=== PATIENT | female | born 1980 | race Caucasian/White ===

== ENCOUNTER 2018-09-14 09:32 | Emergency (ER) | payer OTHER ==
[2018-09-14 10:06] VITALS: BP 118/75; PULSE 80; TEMP 98; BMI 21.4
--- NOTE | 2018-09-14 10:50 | PDOC ---
*Physical Exam - Vital Signs Last Vital Signs Temp Pulse Resp BP Pulse Ox 98.0 F 80 18 118/75 97 09/14/18 10:04 09/14/18 10:04 09/14/18 10:04 09/14/18 10:04 09/14/18 10:04 ED Treatment Course - LABORATORY CBC & Chemistry Diagram: 09/14/18 11:42 09/14/18 11:42 Medical Decision Making - Medical Decision Making 09/14/18 10:50 Pt seen by Midlevel Provider under my direct supervision I agree with plan as outlined by Midlevel Provider *DC/Admit/Observation/Transfer Diagnosis at time of Disposition: Threatened - Discharge Dispostion Disposition: HOME Condition at time of disposition: Good - Referrals Referrals: Ravinder Farrell MD [Staff Physician] - - Patient Instructions Printed Discharge Instructions: DI for Vaginal Bleeding During Additional Instructions: Please follow-up with Dr. Farrell next Friday as scheduled. If you develop any worsening of bowel pain, nausea, fever or heavy vaginal bleeding please return to the ED immediately. Otherwise continue with your prenatals eat well-balanced meals and rest. - Post Discharge Activity Forms/Work/School Notes: Back to Work
[2018-09-14] MEDS ORDERED: ACETAMINOPHEN 500 MG TABLET (FP) PO ONE (10:59)
--- NOTE | 2018-09-14 11:40 | PDOC ---
History of Present Illness - General Chief Complaint: Vaginal Bleeding Stated Complaint: ABD PAIN / 5 WEEKS PRG Time Seen by Provider: 09/14/18 10:43 History Source: Patient Exam Limitations: No Limitations - History of Present Illness Travel History: No Initial Comments: 09/14/18 11:59 38-year-old female presents to ED with complaints of vaginal spotting since this morning accompanied with mid suprapubic cramping since last night. Patient states is approximately 6 weeks based on her last menstrual period. Patient denies fever, chills, nausea, urinary or bowel complaints. Timing/Duration: reports: constant Quality: reports: mild, cramping Abdominal Pain Onset Location: reports: suprapubic Pain Radiation: reports: no radiation Activities at Onset: reports: none Aggravating Factors: improves with: None Alleviating Factors: improves with: None Past History - Travel Traveled outside of the country in the last 30 days: No Close contact w/someone who was outside of country & ill: No - Past Medical History Allergies/Adverse Reactions: Allergies Allergy/AdvReac Type Severity Reaction Status Date / Time No Known Drug Allergies Allergy Verified 09/14/18 10:07 Home Medications: Ambulatory Orders No Home Medications 0 dose .ROUTE UTDICT 11/04/13 Doxycycline Hyclate 100 mg PO BID #20 tablet 11/05/13 Methylergonovine Maleate [Methergine] 0.2 mg PO TID #9 tablet 11/05/13 Anemia: No Asthma: No Cancer: No Cardiac Disorders: No CVA: No COPD: No CHF: No Dementia: No Diabetes: No GI Disorders: No HTN: No Hypercholesterolemia: No Seizures: No - Surgical History Orthopedic Surgery: Yes (RIGHT WRIST SX) - Suicide/Smoking/Psychosocial Hx Smoking History: Never smoked Have you smoked in the past 12 months: No Information on smoking cessation initiated: No Hx Alcohol Use: No Drug/Substance Use Hx: No Substance Use Type: None Hx Substance Use Treatment: No Patient Lives Alone: No Lives with/in: spouse/SO Review of Systems - Review of Systems Able to Perform ROS?: No Is the patient limited French proficient: No Constitutional: No: Symptoms Reported HEENTM: No: Symptoms Reported Respiratory: No: Symptoms reported Cardiac (ROS): No: Symptoms Reported ABD/GI: Yes: Abdominal cramping : No: Symptoms Reported Musculoskeletal: No: Symptoms Reported Integumentary: No: Symptoms Reported Neurological: No: Symptoms reported *Physical Exam - Vital Signs Last Vital Signs Temp Pulse Resp BP Pulse Ox 98.0 F 80 18 118/75 97 09/14/18 10:04 09/14/18 10:04 09/14/18 10:04 09/14/18 10:04 09/14/18 10:04 - Physical Exam General Appearance: Yes: Nourished, Appropriately Dressed. No: Apparent Distress HEENT: negative: Pale Conjunctivae Neck: positive: Normal Thyroid Respiratory/Chest: positive: Lungs Clear, Normal Breath Sounds. negative: Respiratory Distress, Accessory Muscle Use Cardiovascular: positive: Regular Rhythm, Regular Rate. negative: Murmur Female Pelvic Exam: positive: cervical os closed, CMT, vaginal bleeding (scant light brown). negative: adnexal tenderness Gastrointestinal/Abdominal: positive: Normal Bowel Sounds, Soft, Tenderness (id suprapubic) Musculoskeletal: negative: CVA Tenderness Extremity: positive: Normal Capillary Refill Integumentary: positive: Normal Color, Warm, Moist Neurologic: positive: Motor Strength 5/5 (ambulatory) ED Treatment Course - LABORATORY CBC & Chemistry Diagram: 09/14/18 11:42 09/14/18 11:42 - RADIOLOGY Radiology Studies Ordered: Category Date Time Status TRANSVAGINAL US PREG [US] Stat Ultrasound 09/14/18 10:58 Ordered Medical Decision Making - Medical Decision Making 09/14/18 12:06 Chief complaint: Vaginal spotting and suprapubic pain since yesterday evening patient currently 6 weeks based on LMP Exam patient w/ suprapubic tenderness along with skin light brown discharge. plan: labs, urine Tylenol and ultrasound 09/14/18 12:59 Laboratory Tests 09/14/18 09/14/18 09/14/18 11:42 11:42 11:42 Sodium 133 L Potassium 4.1 Chloride 104 Carbon Dioxide 24 Anion Gap 5 L BUN 10 Random Glucose 85 Calcium 9.0 Beta HCG, Quant 92538.6 Urine Nitrite Negative Ur Leukocyte Esterase Negative Urine WBC (Auto) 1 Urine RBC (Auto) 1 Blood Type A POSITIVE pt recommended to have saltines later today *DC/Admit/Observation/Transfer Diagnosis at time of Disposition: Threatened - Discharge Dispostion Disposition: HOME Condition at time of disposition: Good - Referrals Referrals: Ravinder Farrell MD [Staff Physician] - - Patient Instructions Printed Discharge Instructions: DI for Vaginal Bleeding During Additional Instructions: Please follow-up with Dr. Farrell next Friday as scheduled. If you develop any worsening of bowel pain, nausea, fever or heavy vaginal bleeding please return to the ED immediately. Otherwise continue with your prenatals eat well-balanced meals and rest. - Post Discharge Activity Forms/Work/School Notes: Back to Work
[2018-09-14] MEDS ORDERED: ACETAMINOPHEN 325 MG TABLET (FP) PO ONE (11:45)
[2018-09-14 12:01] LABS: BASO % 0.6 % (0-2.0); EOS % 2.5 % (0-4.5); HEMATOCRIT 38.8 % (32.4-45.2); HEMOGLOBIN 13.2 GM/dL (10.7-15.3); MCH 30.8 pg (25.7-33.7); MCHC 34.1 g/dl (32.0-36.0); MEAN CELL VOLUME 90.3 fl (80-96); MEAN PLT VOLUME 10.6 fl (7.5-11.1); MONO % 6.5 % (3.8-10.2); NEUT % 72.4 % (42.8-82.8); PLATELET COUNT 161 K/MM3 (134-434); RBC 4.29 M/mm3 (3.60-5.2); RDW 12.8 % (11.6-15.6)
[2018-09-14 12:08] LABS: EPI CELLS 2.8 /HPF (0-5); PH,URINE 5.5 (5.0-8.0); URINE APPEARANCE CLEAR; URINE BACTERIA 196.7 /hpf (NEGATIVE); URINE BILIRUBIN NEGATIVE (NEGATIVE); URINE CASTS 0 /hpf (0-8); URINE COLOR YELLOW; URINE GLUCOSE (UA) NEGATIVE (NEGATIVE); URINE KETONE NEGATIVE (NEGATIVE); URINE LEUK ESTERASE NEGATIVE (NEGATIVE); URINE NITRITE NEGATIVE (NEGATIVE); URINE PROTEIN NEGATIVE (NEGATIVE); URINE RBC 1 /hpf (0-4); URINE UROBILINOGEN 0.2 mg/dL (0.2-1.0); URINE WBC 1 /hpf (0-5)
[2018-09-14] MEDS ORDERED: ACETAMINOPHEN 325 MG TABLET (FP) ONE (12:31)
[2018-09-14 12:40] LABS: ALK PHOS 51 U/L (45-117); ANION GAP 5 MMOL/L (8-16); BILIRUBIN,TOTAL 0.3 mg/dL (0.2-1); BLOOD UREA NITROGEN 10 mg/dL (7-18); CHLORIDE 104 mmol/L (98-107); CO2 24 mmol/L (21-32); CREATININE 0.6 mg/dL (0.55-1.3); GLUCOSE,RANDOM 85 mg/dL (74-106); POTASSIUM 4.1 mmol/L (3.5-5.1); SGOT/AST 12 U/L (15-37); SGPT/ALT 13 U/L (13-61); SODIUM 133 mmol/L (136-145); TOT PROT 7.5 g/dl (6.4-8.2)
[2018-09-14] MEDS ORDERED: SODIUM CHLORIDE 1,000 ML IV STA (12:58)
== END 2018-09-14 14:22 | disposition home or self-care (01) ==
LOC: JER 09:32
PROC: 3E0337Z Introduction of Electrolytic and Water Balance Substance into Peripheral Vein, Percutaneous Approach (ICD-10-PCS; principal; 2018-09-14)
DX: O26.891 Other specified pregnancy related conditions, first trimester (principal); O20.0 Threatened abortion; Z3A.01 Less than 8 weeks gestation of pregnancy
CPT/HCPCS: 36415; 76817-TC; 80053; 81003; 84702; 85025; 86850; 86900; 86901; 87086; 96360; 99281-25

== ENCOUNTER 2018-09-28 18:28 | Emergency (ER) | payer OTHER ==
[2018-09-28 18:39] VITALS: BP 115/68; PULSE 76; TEMP 98.6; BMI 22.8
--- NOTE | 2018-09-28 18:40 | PDOC ---
Rapid Medical Evaluation Chief Complaint: Vaginal Bleeding Time Seen by Provider: 09/28/18 18:39 Medical Evaluation: Allergies Allergy/AdvReac Type Severity Reaction Status Date / Time No Known Drug Allergies Allergy Verified 09/14/18 10:07 09/28/18 18:39 I have performed a brief in-person evaluation of this patient. The patient presents with a chief complaint of: PVB- spotting Pertinent physical exam findings: deferred I have ordered the following: labs, urine, TVUS The patient will proceed to the ED for further evaluation. Discharge Disposition - Diagnosis Vaginal bleeding affecting early - Referrals - Patient Instructions - Post Discharge Activity
[2018-09-28 19:09] LABS: EPI CELLS 1.3 /HPF (0-5/HPF); PH,URINE 6.5 (5.0-8.0); URINE APPEARANCE CLEAR; URINE BACTERIA 101.9 /hpf (NEGATIVE); URINE BILIRUBIN NEGATIVE (NEGATIVE); URINE CASTS 1 /lpf (0-8); URINE COLOR YELLOW; URINE GLUCOSE (UA) NEGATIVE (NEGATIVE); URINE KETONE NEGATIVE (NEGATIVE); URINE LEUK ESTERASE NEGATIVE (NEGATIVE); URINE NITRITE NEGATIVE (NEGATIVE); URINE PROTEIN NEGATIVE (NEGATIVE); URINE RBC 2 /hpf (0-4); URINE UROBILINOGEN 0.2 mg/dL (0.2-1.0); URINE WBC 2 /hpf (0-5)
--- NOTE | 2018-09-28 19:14 | PDOC ---
History of Present Illness - General Chief Complaint: Vaginal Bleeding Stated Complaint: FEELING PAIN Time Seen by Provider: 09/28/18 18:39 - History of Present Illness Initial Comments: 38yo A2 currently 8 weeks (LMP 07/27/18) complaining vaginal spotting and abdominal pain x 2 days. Patient presented to this ED three weeks ago for similar complaint. She has seen the nurse for her juvenile justice officer since that time. She did not have pain or spotting again until two days ago. Previous pregnancies resulted in first-trimester miscarriage. Patient states she has not passed any clots or tissue, but notes brownish-reddish spotting when she wipes. Endorses 5/10 minor abdominal pain which is intermittent and described as "a pushing." Denies nausea or vomiting. Last bowel movement was a normal formed brown stool a day or two ago, but she does report intermittent constipation. Denies any trauma. No dysuria. Endorses some urinary frequency which she attributes to . No history of abdominal surgeries. No fever, chills, chest pain, or shortness of breath. Sleeve Separator: Dr. Ravinder Farrell Past History - Past Medical History Allergies/Adverse Reactions: Allergies Allergy/AdvReac Type Severity Reaction Status Date / Time No Known Drug Allergies Allergy Verified 09/28/18 18:39 Home Medications: Ambulatory Orders No Home Medications 0 dose .ROUTE UTDICT 11/04/13 Magnesium Hydroxide [Milk of Magnesia -] 30 ml PO DAILY PRN #1 bottle 09/28/18 Anemia: No Asthma: No Cancer: No Cardiac Disorders: No CVA: No COPD: No CHF: No Dementia: No Diabetes: No GI Disorders: No HTN: No Hypercholesterolemia: No Seizures: No - Surgical History Orthopedic Surgery: Yes (RIGHT WRIST SX) - Reproductive History Is Patient Now?: Yes (#): 3 Para: 0 Therapeutic (s) & number: No Spontaneous : 2 - Suicide/Smoking/Psychosocial Hx Smoking History: Never smoked Have you smoked in the past 12 months: No Information on smoking cessation initiated: No Hx Alcohol Use: No Drug/Substance Use Hx: No Substance Use Type: None Hx Substance Use Treatment: No Review of Systems - Review of Systems Comments:: Constitutional: no fever, no chills HEENT: no throat pain, no dysphagia Cardiovascular: no chest pain, no palpitations Respiratory: no cough, no shortness of breath Gastrointestinal: +abdominal pain, no nausea Genitourinary: no dysuria, + frequency Musculoskeletal: no myalgia, no arthralgia Skin: no rash, no itching Neurologic: no headache, no weakness *Physical Exam - Vital Signs Last Vital Signs Temp Pulse Resp BP Pulse Ox 98.6 F 76 17 115/68 97 09/28/18 18:37 09/28/18 18:37 09/28/18 18:37 09/28/18 18:37 09/28/18 18:37 - Physical Exam Comments: General: Awake, alert, and fully oriented, in no acute distress Head: No signs of trauma Eyes: EOMI, sclera anicteric ENT: Moist mucus membranes Neck: Normal ROM, supple Lungs: Lungs clear, Normal breath sounds Cardio: Regular rhythm, S1 and S2 present Abdomen: Tender to palpation in lower abdomen, most focal to suprapubic area. Soft. No guarding, no rebound, no masses. No CVA tenderness. Extremities: Normal range of motion, Distal pulses present SKIN: Warm, Dry, normal turgor Neurologic: Cranial nerves II through XII grossly intact. Normal speech Pelvic: External genitalia without erythema, exudate or discharge. Vaginal vault is with physiologic discharge. Cervix is of normal color without lesion. The os is closed. There is no bleeding noted. Uterus is noted to be of appropriate size and nontender. No cervical motion tenderness is seen. No masses are palpated. The adnexa are without masses or tenderness. ED Treatment Course - LABORATORY CBC & Chemistry Diagram: 09/28/18 18:48 09/28/18 18:48 Medical Decision Making - Medical Decision Making 38yo A2 currently 12 weeks (LMP 07/27/18) complaining vaginal spotting and abdominal pain x 2 days. DDX including but not limited to threatened , ectopic , subchorionic hemorrhage, UTI, cervical/vaginal lesion, thrombocytopenia, pre- eclampsia CBC, BMP, UA, UCx, B-hcg, TVUS First UA has bacteriuria present but likely a contaminated sample as the patient did not wipe. Decision made to repeat UA 650mg tylenol po 09/28/18 20:03 No anemia or leukocytosis Electrolytes unremarkable Second UA negative for infection Pending US report Pending b-hcg Patient is Rh+ 09/28/18 20:18 US: "The exam demonstrates a single viable intrauterine gestation at approximately 8 weeks 0 days (crown -rump length 1.7 cm). Embryonic cardiac rate 179 BPM. In comparison to a prior ultrasound study of 09/14/2018 interval resolution of a small subchorionic implantation bleed is noted. A 1.7 cm left ovarian follicle/cyst is noted. No Doppler evidence of left ovarian torsion, sensitivity 70%. The right ovary could not be definitely visualized. Impression : Single viable intrauterine gestation at approximately 8 weeks 0 days as noted above. " 09/28/18 20:32 Milk of Magnesia sent to pharmacy for constipation Patient discharged *DC/Admit/Observation/Transfer Diagnosis at time of Disposition: Vaginal bleeding affecting early - Discharge Dispostion Disposition: HOME Condition at time of disposition: Stable - Prescriptions Prescriptions: Magnesium Hydroxide [Milk of Magnesia -] 30 ml PO DAILY PRN #1 bottle PRN Reason: Constipation - Referrals Referrals: Ravinder Farrell MD [Primary Care Provider] - - Patient Instructions Printed Discharge Instructions: DI for Vaginal Bleeding During Additional Instructions: You were seen in the Emergency Department for vaginal spotting. Blood work and urinalysis was normal. Pelvic rest is recommended until your juvenile justice officer says otherwise. Do not place anything in the vagina. You can take [id number] tylenol for pain. Follow the instructions on the medication bottle. Prescription for constipation sent to your pharmacy. Follow-up with your juvenile justice officer this week to discuss this visit and to further evaluate your symptoms. Your care is not complete until you do so. Call and make an appointment. Return to the Emergency Department if you experience: -heavy bleeding (more than two pads per hour for two hours) -severe pain -lightheadedness -shortness of breath -high fever -any other concerning symptoms ==== Usted fue atendido en el [facility]art[facility] por manchado vaginal. El anlisis de martir y el anlisis de orina fue normal. Se recomienda el descanso plvico hasta que emerson gineclogo / obstetra diga lo contrario. No coloque nada en la vagina. Puede wolf tylenol de venta elmer para el dolor. Siga las instrucciones en el envase del medicamento. Receta para el estreimiento enviada a emerson farmacia. Misti un seguimiento con emerson gineclogo / obstetra esta semana para analizar esta visita y evaluar ms a fondo ama sntomas. Emerson cuidado no est completo hasta que lo misti. Llame y misti gilmar shanna. Regrese al Departamento [facility] Emer[facility] si experimenta: - sangrado abundante (ms de dos compresas por hora fredy dos horas) -dolor brian aturdimiento -cortitud de aliento -fiebre rene - Cualquier otro sntoma relativo. - Post Discharge Activity
[2018-09-28 19:45] LABS: BASO % 0.4 % (0-2.0); EOS % 3.5 % (0-4.5); HEMATOCRIT 36.9 % (32.4-45.2); HEMOGLOBIN 12.9 GM/dL (10.7-15.3); LYMPH % 16.6 % (8-40); MCH 31.4 pg (25.7-33.7); MEAN CELL VOLUME 89.6 fl (80-96); MEAN PLT VOLUME 10.7 fl (7.5-11.1); MONO % 6.2 % (3.8-10.2); NEUT % 73.3 % (42.8-82.8); PLATELET COUNT 160 K/MM3 (134-434); RBC 4.12 M/mm3 (3.60-5.2); RDW 13.3 % (11.6-15.6); WHITE BLOOD COUNT 9.4 K/mm3 (4.0-10.0)
[2018-09-28] MEDS ORDERED: ACETAMINOPHEN 325 MG TABLET (FP) PO ONE (19:48)
[2018-09-28] MEDS ORDERED: ACETAMINOPHEN 325 MG TABLET (FP) ONE (19:51)
[2018-09-28 20:01] LABS: URINE APPEARANCE CLEAR; URINE BILIRUBIN NEGATIVE (NEGATIVE); URINE COLOR YELLOW; URINE GLUCOSE (UA) NEGATIVE (NEGATIVE); URINE KETONE NEGATIVE (NEGATIVE); URINE LEUK ESTERASE NEGATIVE (NEGATIVE); URINE NITRITE NEGATIVE (NEGATIVE); URINE PROTEIN NEGATIVE (NEGATIVE); URINE UROBILINOGEN 0.2 mg/dL (0.2-1.0)
[2018-09-28 20:14] LABS: ANION GAP 7 MMOL/L (8-16); BLOOD UREA NITROGEN 12 mg/dL (7-18); CALCIUM 8.9 mg/dL (8.5-10.1); CHLORIDE 102 mmol/L (98-107); CO2 27 mmol/L (21-32); CREATININE 0.7 mg/dL (0.55-1.3); GLUCOSE,RANDOM 100 mg/dL (74-106); POTASSIUM 4.1 mmol/L (3.5-5.1); SODIUM 135 mmol/L (136-145)
== END 2018-09-28 21:08 | disposition home or self-care (01) ==
LOC: JER 18:28
DX: O26.891 Other specified pregnancy related conditions, first trimester (principal); O20.8 Other hemorrhage in early pregnancy; O34.81 Maternal care for other abnormalities of pelvic organs, first trimester; N83.292 Other ovarian cyst, left side; Z3A.08 8 weeks gestation of pregnancy
CPT/HCPCS: 36415; 76801-TC; 80048; 81003; 84702; 85025; 86850; 86900; 86901; 87086; 99282-25

== ENCOUNTER 2020-02-05 10:37 | Emergency (ER) | payer OTHER ==
[2020-02-05 10:48] VITALS: BMI 22.8
[2020-02-05 11:09] LABS: HCG,QUALITATIVE URINE Positive; URINE APPEARANCE CLEAR; URINE BILIRUBIN NEGATIVE (NEGATIVE); URINE COLOR YELLOW; URINE GLUCOSE (UA) NEGATIVE (NEGATIVE); URINE KETONE NEGATIVE (NEGATIVE); URINE LEUK ESTERASE NEGATIVE (NEGATIVE); URINE NITRITE NEGATIVE (NEGATIVE); URINE PROTEIN NEGATIVE (NEGATIVE)
[2020-02-05 12:02] LABS: BASO % 0.8 % (0-2.0); EOS % 2.7 % (0-4.5); HEMATOCRIT 40.7 % (32.4-45.2); HEMOGLOBIN 13.6 GM/dL (10.7-15.3); LYMPH % 22.3 % (8-40); MCH 30.2 pg (25.7-33.7); MCHC 33.6 g/dl (32.0-36.0); MEAN PLT VOLUME 10.4 fl (7.5-11.1); MONO % 8.9 % (3.8-10.2); NEUT % 65.3 % (42.8-82.8); PLATELET COUNT 167 K/MM3 (134-434); RBC 4.52 M/mm3 (3.60-5.2); RDW 13.4 % (11.6-15.6); WHITE BLOOD COUNT 6.1 K/mm3 (4.0-10.0)
--- NOTE | 2020-02-05 12:38 | PDOC ---
History of Present Illness - General Chief Complaint: Pain, Acute Stated Complaint: R/O PREG./ABD PAIN Time Seen by Provider: 02/05/20 11:05 History Source: Patient Exam Limitations: No Limitations Past History - Travel History Traveled outside of the country in the last 30 days: No Close contact w/someone who was outside of country & ill: No - Medical History Allergies/Adverse Reactions: Allergies Allergy/AdvReac Type Severity Reaction Status Date / Time No Known Drug Allergies Allergy Verified 02/05/20 10:45 Home Medications: Ambulatory Orders No Home Medications 0 dose .ROUTE UTDICT 11/04/13 Anemia: No Asthma: No Cancer: No Cardiac Disorders: No CVA: No COPD: No CHF: No Dementia: No Diabetes: No GI Disorders: No HTN: No Hypercholesterolemia: No Seizures: No - Surgical History Orthopedic Surgery: Yes (RIGHT WRIST SX) - Reproductive History Is Patient Now?: No (#): 3 Para: 0 Therapeutic (s) & number: No Spontaneous : 2 - Psycho-Social/Smoking History Smoking History: Never smoked Have you smoked in the past 12 months: No - Substance Abuse Hx (Audit-C & DAST Scrn) How often the patient has a drink containing alcohol: Monthly or less Score: In Men: 4 or > Positive; In Women: 3 or > Positive: 1 Screen Result (Pos requires Nsg. Audit-10AR): Negative In the last yr the pt used illegal drug/Rx for NonMed reason: No Score: Yes response is considered Positive: 0 Screen Result (Positive result requires Nsg. DAST-10): Negative Review of Systems - Review of Systems Able to Perform ROS?: Yes Comments:: 02/05/20 12:51 CONSTITUTIONAL: Absent: fever, chills, diaphoresis, generalized weakness, malaise, loss of appetite HEENT: Absent: rhinorrhea, nasal congestion, throat pain, throat swelling, difficulty swallowing, mouth swelling, ear pain, eye pain, visual Changes CARDIOVASCULAR: Absent: chest pain, loss of consciousness, palpitations, irregular heart rate, peripheral edema RESPIRATORY: Absent: cough, shortness of breath, dyspnea with exertion, orthopnea, wheezing, stridor, hemoptysis GASTROINTESTINAL: Present: abdominal pain Absent: abdominal distension, nausea, vomiting, diarrhea, constipation, melena, hematochezia GENITOURINARY: Absent: dysuria, frequency, urgency, hesitancy, hematuria, flank pain, genital pain MUSCULOSKELETAL: Absent: myalgia, arthralgia, joint swelling SKIN: Absent: rash, itching, pallor HEMATOLOGIC/IMMUNOLOGIC: Absent: easy bleeding, easy bruising, lymphadenopathy, frequent infections ENDOCRINE: Absent: unexplained weight gain, unexplained weight loss, heat intolerance, cold intolerance NEUROLOGIC: Absent: headache, focal weakness or paresthesias, dizziness, unsteady gait, seizure, mental status changes, bladder or bowel incontinence PSYCHIATRIC: Absent: anxiety, depression, suicidal or homicidal ideation, hallucinations. Is the patient limited Iranian proficient: No *Physical Exam - Vital Signs Last Vital Signs Temp Pulse Resp BP Pulse Ox 98 F 90 16 106/66 100 02/05/20 10:45 02/05/20 10:45 02/05/20 10:45 02/05/20 10:45 02/05/20 10:45 - Physical Exam 02/05/20 12:55 GENERAL: Well developed, well nourished. Awake and alert. No acute distress. HEENT: Normocephalic, atraumatic. PERRLA, EOMI. No conjunctival pallor. Sclera are non- icteric. Moist mucous membranes. NECK: Supple. Full ROM. CARDIOVASCULAR: Regular rate and rhythm. No murmurs, rubs, or gallops. Distal pulses are 2+ and symmetric. PULMONARY: No evidence of respiratory distress. Breathing comfortably on room air. ABDOMINAL: LLQ tenderness. Soft. Non-distended. No rebound or guarding. No organomegaly. Normoactive bowel sounds. MUSCULOSKELETAL Normal range of motion at all joints. No bony deformities or tenderness. No CVA tenderness. EXTREMITIES: No cyanosis. No clubbing. No edema. No calf tenderness. SKIN: Warm and dry. Normal capillary refill. No rashes. No jaundice. NEUROLOGICAL: Alert, awake, appropriate. Cranial nerves 2-12 intact. No deficits to light touch and temperature in face, upper extremities and lower extremities. No motor deficits in the in face, upper extremities and lower extremities. Normoreflexic in the upper and lower extremities. Normal speech. Toes are down-going bilaterally. Gait is normal without ataxia. PSYCHIATRIC: Cooperative. Good eye contact. Appropriate mood and affect. ED Treatment Course - LABORATORY CBC & Chemistry Diagram: 02/05/20 11:36 02/05/20 11:36 - ADDITIONAL ORDERS Additional order review: Laboratory Results 02/05/20 10:50 Urine Color Yellow Urine Appearance Clear Urine pH 7.0 Ur Specific [place] 1.008 L Urine Protein Negative Urine Glucose (UA) Negative Urine Ketones Negative Urine Blood Negative Urine Nitrite Negative Urine Bilirubin Negative Urine Urobilinogen 1.0 Ur Leukocyte Esterase Negative Urine HCG, Qual Positive 02/05/20 11:36 RBC 4.52 MCV 90.0 MCHC 33.6 RDW 13.4 MPV 10.4 Neutrophils % 65.3 Lymphocytes % 22.3 D Monocytes % 8.9 Eosinophils % 2.7 Basophils % 0.8 - RADIOLOGY Radiology Studies Ordered: Category Date Time Status TRANSVAGINAL US PREG [US] Stat Ultrasound 02/05/20 11:27 Completed Medical Decision Making - Medical Decision Making 02/05/20 12:56 The patient is a 40-year-old female with no past medical history, G3, P1, presents to the ER for lower abdominal pain and nausea for the past 3 days. She states her last menstrual cycle was 12/26/2019. She is concerned she might be . She states she also has some left lower abdominal pain. She did not want take any medication until she cannot her status. Denies lightheadedness, dizziness, chest pain, shortness of breath, vaginal discharge, bleeding, dysuria, hematuria. A/P: On exam patient has mild left lower adnexal tenderness. Otherwise rest of abdominal exam is benign. Urine is positive. Denies vaginal bleeding. Beta is over 6000. Transvaginal ultrasound shows a very early within the uterus. No pole identified at this time. Approximately 5 weeks gestation. Early versus impending miscarriage. We will have patient follow-up with her [facility] in one week. Discharge with return precautions. I discussed the physical exam findings, ancillary test results and final diagnoses with the patient. I answered all of the patient's questions. The patient was satisfied with the care received and felt comfortable with the discharge plan and treatment plan. The Patient agrees to follow up with the primary care physician/specialist within 24-72 hours. Return precautions were given. Discharge - Discharge Information Problems reviewed: Yes Clinical Impression/Diagnosis: Qualifiers: Weeks of gestation: less than 8 weeks Qualified Code(s): Z3A.01 - Less than 8 weeks gestation of Condition: Stable Disposition: HOME - Admission No - Follow up/Referral Referrals: Mat Davies MD [Staff Physician] - - Patient Discharge Instructions Patient Printed Discharge Instructions: DI for Abdominal Pain -- Early Additional Instructions: You were seen today for your abdominal pain. You are . Your ultrasound shows a to approximately 5 weeks . There was no heart beat today. This is expected as you are very early in your . Your beta hCG was 6500 today. You may take Tylenol as needed for pain. Follow the dosing instructions on the bottle. Follow-up with your [facility] in 1 week for repeat ultrasound and blood work. Return to the ER for worsening pain, vaginal bleeding, persistent vomiting or if you have any changes in your symptoms. - Post Discharge Activity
[2020-02-05 12:39] LABS: ALBUMIN 4.1 g/dl (3.4-5.0); BILIRUBIN,TOTAL 0.5 mg/dL (0.2-1); BLOOD UREA NITROGEN 8.1 mg/dL (7-18); CREATININE 0.7 mg/dL (0.55-1.3); POTASSIUM 4.3 mmol/L (3.5-5.1); TOT PROT 7.5 g/dl (6.4-8.2)
[2020-02-05 13:12] VITALS: BP 110/68; PULSE 83; TEMP 98.2
== END 2020-02-05 13:11 | disposition home or self-care (01) ==
LOC: JER 10:37
DX: O26.899 Other specified pregnancy related conditions, unspecified trimester (principal); Z3A.01 Less than 8 weeks gestation of pregnancy
CPT/HCPCS: 36415; 76817-TC; 80053; 81003; 84702; 84703; 85025; 86850; 86900; 86901; 87086; 99284-25

== ENCOUNTER 2020-02-26 18:02 | Emergency (ER) | payer OTHER ==
[2020-02-26 18:09] VITALS: BMI 23.6
--- NOTE | 2020-02-26 18:12 | PDOC ---
History of Present Illness - General Chief Complaint: Vaginal Bleeding Stated Complaint: 8 WEEKS /HAEMORRHAGING Time Seen by Provider: 02/26/20 18:10 History Source: Patient - History of Present Illness Timing/Duration: reports: constant Past History - Medical History Allergies/Adverse Reactions: Allergies Allergy/AdvReac Type Severity Reaction Status Date / Time No Known Drug Allergies Allergy Verified 02/05/20 10:45 Home Medications: Ambulatory Orders No Home Medications 0 dose .ROUTE UTDICT 11/04/13 Anemia: No Asthma: No Cancer: No Cardiac Disorders: No CVA: No COPD: No CHF: No Dementia: No Diabetes: No GI Disorders: No HTN: No Hypercholesterolemia: No Seizures: No - Surgical History Orthopedic Surgery: Yes (RIGHT WRIST SX) - Reproductive History Is Patient Now?: Yes (#): 3 Para: 0 Therapeutic (s) & number: No Spontaneous : 2 - Psycho-Social/Smoking History Smoking History: Never smoked Have you smoked in the past 12 months: No - Substance Abuse Hx (Audit-C & DAST Scrn) How often the patient has a drink containing alcohol: Never Score: In Men: 4 or > Positive; In Women: 3 or > Positive: 0 Screen Result (Pos requires Nsg. Audit-10AR): Negative In the last yr the pt used illegal drug/Rx for NonMed reason: No Score: Yes response is considered Positive: 0 Screen Result (Positive result requires Nsg. DAST-10): Negative Review of Systems - Review of Systems Constitutional: No: Chills, Fever ABD/GI: Yes: Abdominal cramping. No: Nausea, Vomiting : No: Dysuria, Flank Pain *Physical Exam - Vital Signs Last Vital Signs Temp Pulse Resp BP Pulse Ox 87 18 106/72 99 02/26/20 18:07 02/26/20 18:07 02/26/20 18:07 02/26/20 18:07 - Physical Exam General Appearance: Yes: Appropriately Dressed. No: Apparent Distress HEENT: positive: Normal Voice Neck: positive: Supple Respiratory/Chest: negative: Respiratory Distress Medical Decision Making - Medical Decision Making 02/26/20 18:11 40-year-old female (s/p 2 spon AB), ~8 weeks by dates with confirmed IUP with heart rate on ultrasound with Dr. Farrell 2 weeks ago, beta 22,883, 10 days ago, here with vaginal bleeding since last night that got worse today with some lower abdominal cramping. No clots, dysuria, nausea, vomiting fever or chills. Of note patient known A that people told for me + multiple T&S here at [facility] see exam 1st trimester bleed w/ confirmed IUP w/ FHR on US 2 weeks ago w/ beta >22k then RH + per prior record here Stable and well evon here -beta -UA -US 02/26/20 20:37 Beta 1207.6 today, down from >22K, 10 days ago per records pt has on her person. US read pending 02/26/20 20:54 US IMPRESSION: Single intrauterine 6 weeks 1 day gestation with no heart rate detected. Concerning for demise. Above findings discussed with patient. To follow-up with her RECOVERY ENGINEER on Friday. Reasons to return discussed with patient. Stable at time of discharge. UA unremarkable. Ucx sent Discharge - Discharge Information Problems reviewed: Yes Clinical Impression/Diagnosis: demise Condition: Stable Disposition: HOME - Follow up/Referral - Patient Discharge Instructions Patient Printed Discharge Instructions: DI for Miscarriage Additional Instructions: Based on your blood work and ultrasound it appears that there is demise. Your body naturally will abort the fetus usually but you do need to follow-up with your RECOVERY ENGINEER this week If you develop severe pain and bleeding, return to the ER - Post Discharge Activity
[2020-02-26 19:11] LABS: EPI CELLS 6 /uL (0-25.1); HYALINE CASTS 1 /uL (0-3.1); URINE APPEARANCE CLEAR; URINE BACTERIA 37 /uL (0-1359); URINE BILIRUBIN NEGATIVE (NEGATIVE); URINE COLOR YELLOW; URINE GLUCOSE (UA) NEGATIVE (NEGATIVE); URINE KETONE NEGATIVE (NEGATIVE); URINE LEUK ESTERASE NEGATIVE (NEGATIVE); URINE NITRITE NEGATIVE (NEGATIVE); URINE PROTEIN NEGATIVE (NEGATIVE); URINE RBC 7 /uL (0-23.9); URINE WBC 1 /uL (0-25.8)
[2020-02-26 21:16] VITALS: BP 155/96; PULSE 96; TEMP 98.6
== END 2020-02-26 21:16 | disposition home or self-care (01) ==
LOC: JER 18:02
DX: O36.4XX0 Maternal care for intrauterine death, not applicable or unspecified (principal)
CPT/HCPCS: 36415; 76817-TC; 81003; 84702; 87086; 99284-25

== ENCOUNTER 2020-02-27 03:59 | Emergency (ER) | payer OTHER ==
--- NOTE | 2020-02-27 04:18 | PDOC ---
History of Present Illness - General Chief Complaint: Vaginal Bleeding Stated Complaint: ABD PAIN Time Seen by Provider: 02/27/20 04:18 History Source: Patient Exam Limitations: No Limitations - History of Present Illness Initial Comments: 02/27/20 04:21 HPI: This is a 40-year-old female , 8 weeks with confirmed IUP 2 weeks ago, but no heart rate per ultrasound in the ED yesterday who is now presenting due to bleeding, abdominal cramping, and the passing of a clot in the toilet which began a a few hours ago. The patient was informed of her demise when she left the hospital yesterday, and what to expect over the next few days. She said he had bright red blood which soaked through three pads in the past few hours, and saw a large clot pass in the toilet. The bleeding has since slowed down. She states that she came to the ED because she was in a lot of pain due to the cramping. She took naproxen at home with little improvement, but is now feeling better in the ED. She denies lightheadedness, dysuria, nausea, vomiting, fever, or chills. She has plans to follow-up with ObGyn on Friday, but just needs pain control. ROS: GENERAL/CONSTITUTIONAL: No fever/chills. No weakness. CARDIOVASCULAR: No chest pain or shortness of breath. RESPIRATORY: No cough, wheezing GASTROINTESTINAL: No nausea, vomiting GENITOURINARY: No dysuria, frequency MUSCULOSKELETAL: No joint or muscle swelling or pain. No neck or back pain. NEUROLOGIC: No headache, loss of consciousness HEMATOLOGIC/LYMPHATIC: Yes vaginal bleeding and passage of clots. PMH: Denied Meds: See nurse note Allergies: KNDA PE: GENERAL: Awake, alert, and fully oriented, in no acute distress. Laying in bed, conversational. Non-toxic in appearance. HEAD: No signs of trauma EYES: PERRLA, EOMI NECK: Normal ROM, supple LUNGS: Breath sounds equal, clear to auscultation bilaterally HEART: Regular rate and rhythm, normal S1 and S2 ABDOMEN: Soft, mildly tender in suprapubic region EXTREMITIES: Normal range of motion, no edema NEUROLOGICAL: Cranial nerves II through XII grossly intact. Normal speech, normal gait SKIN: Warm, Dry, normal turgor, no rashes or lesions noted. MDM: 02/27/20 05:30 This is a 40-year-old female , 8 weeks with confirmed IUP 2 weeks ago, but no heart rate per ultrasound in the ED last night who presented due to bleeding, abdominal cramping, and the passing of a clot in the toilet which began a a few hours ago. - Patient understands that she is likely miscarrying. She came into the ED because she was unable to manage the pain from the cramping at home. - Not currently in a lot of pain, will give tylenol for pain control and repeat bHCG to ensure it's decreasing. - Plans of following up with ObGyn tomorrow. - Yesterday, BHCG was 90120, down from >22k 10 days ago US IMPRESSION (previous visit): Single intrauterine 6 weeks 1 day gestation with no heart rate d etected. Concerning for demise. - Repeat BHCG 8699 - bHCG is downtrending indicating probable miscarriage. Patients pain is controlled, and bleeding is still decreasing. She understands return precautions and the importance of following up with ObGyn tomorrow. - Patient is stable for discharge. Past History - Medical History Allergies/Adverse Reactions: Allergies Allergy/AdvReac Type Severity Reaction Status Date / Time No Known Drug Allergies Allergy Verified 02/27/20 04:07 Home Medications: Ambulatory Orders No Home Medications 0 dose .ROUTE UTDICT 11/04/13 Anemia: No Asthma: No Cancer: No Cardiac Disorders: No CVA: No COPD: No CHF: No Dementia: No Diabetes: No GI Disorders: No HTN: No Hypercholesterolemia: No Seizures: No - Surgical History Orthopedic Surgery: Yes (RIGHT WRIST SX) - Reproductive History Is Patient Now?: No (#): 3 Para: 0 Therapeutic (s) & number: No Spontaneous : 2 - Psycho-Social/Smoking History Smoking History: Never smoked Have you smoked in the past 12 months: No Information on smoking cessation initiated: No - Substance Abuse Hx (Audit-C & DAST Scrn) How often the patient has a drink containing alcohol: Never Score: In Men: 4 or > Positive; In Women: 3 or > Positive: 0 Screen Result (Pos requires Nsg. Audit-10AR): Negative In the last yr the pt used illegal drug/Rx for NonMed reason: No Score: Yes response is considered Positive: 0 Screen Result (Positive result requires Nsg. DAST-10): Negative *Physical Exam - Vital Signs Last Vital Signs Temp Pulse Resp BP Pulse Ox 98.9 F 78 20 120/74 98 02/27/20 04:01 02/27/20 04:01 02/27/20 04:01 02/27/20 04:01 02/27/20 04:01 Discharge - Discharge Information Problems reviewed: Yes Clinical Impression/Diagnosis: Miscarriage Condition: Stable Disposition: HOME - Admission No - Follow up/Referral Referrals: Juan Garcia II, DO [Primary Care Provider] - - Patient Discharge Instructions Patient Printed Discharge Instructions: DI for Miscarriage Additional Instructions: You came to the ED tonight because you were having vaginal bleeding with clots. Most likely this is a miscarriage or an impending miscarriage. Please follow-up with your ObGyn on Friday. Please return to the ED if you have any new or concerning symptoms. Please return if you continue to have heavy bleeding (more than two pads per hours). Please return if you have any lightheadedness, palpitations, or abdominal pain that is increased or not controlled with medication. Print Language: RWANDAN - Post Discharge Activity
[2020-02-27 04:28] VITALS: BMI 22.8
[2020-02-27] MEDS ORDERED: ACETAMINOPHEN 325 MG TABLET (FP) PO ONE (04:38)
--- NOTE | 2020-02-27 04:38 | PDOC ---
Attending Attestation - Resident Resident Name: Matilde Mo - ED Attending Attestation I have performed the following: I have examined & evaluated the patient, The case was reviewed & discussed with the resident, I agree w/resident's findings & plan - HPI HPI: 02/27/20 21:58 This is a 40-year-old female , 8 weeks with confirmed IUP 2 weeks ago, but no heart rate per ultrasound in the ED yesterday who is now presenting due to bleeding, abdominal cramping, and the passing of a clot in the toilet which began a a few hours ago. - Physicial Exam PE: 02/27/20 21:58 Normal exam. Agree with resident exam - Medical Decision Making 02/27/20 21:58 Pt 's last bhcg was 12K earlier today current beta HCG is 8K. Pt is stable to go home. She can take otc meds for pain control. SHe will follow with Dr. Farrell in his office next week. Return for worsening pain, fever , or severe bleeding. Discharge - Discharge Information Problems reviewed: Yes Clinical Impression/Diagnosis: Miscarriage Condition: Stable Disposition: HOME - Follow up/Referral Referrals: Juan Garcia II, DO [Primary Care Provider] - - Patient Discharge Instructions Patient Printed Discharge Instructions: DI for Miscarriage Additional Instructions: You came to the ED tonight because you were having vaginal bleeding with clots. Most likely this is a miscarriage or an impending miscarriage. Please follow-up with your ObGyn on Friday. Please return to the ED if you have any new or concerning symptoms. Please return if you continue to have heavy bleeding (more than two pads per hours). Please return if you have any lightheadedness, palpitations, or abdominal pain that is increased or not controlled with medication. Print Language: ROMANIAN - Post Discharge Activity
[2020-02-27] MEDS ORDERED: ACETAMINOPHEN 325 MG TABLET (FP) ONE (04:40)
[2020-02-27 06:44] VITALS: BP 102/66; PULSE 86; TEMP 97.7
== END 2020-02-27 06:44 | disposition home or self-care (01) ==
LOC: JER 03:59
DX: O03.9 Complete or unspecified spontaneous abortion without complication (principal)
CPT/HCPCS: 36415; 84702; 99283-25

== ENCOUNTER 2023-05-26 09:43 | Emergency (ER) | payer OTHER ==
[2023-05-26 10:10] VITALS: BMI 22.8
[2023-05-26] MEDS ORDERED: LORATADINE 10 MG TABLET PO ONE (11:00)
[2023-05-26] MEDS ORDERED: LORATADINE 10 MG TABLET ONE (11:25)
[2023-05-26] MEDS ORDERED: ALBUTEROL SO4 2.5/IPRATROPIUM 0.5 INH SOL 3 ML VIAL.NEB. NEB ONE (11:25)
[2023-05-26] MEDS: ALBUTEROL SO4 2.5/IPRATROPIUM 0.5 INH SOL 3 ML VIAL.NEB. NEB SCH ×3 (11:27→11:52)
[2023-05-26] MEDS ORDERED: DEXAMETHASONE 4 MG TABLET (FP) PO ONE (11:37)
[2023-05-26] MEDS ORDERED: DEXAMETHASONE 4 MG TABLET (FP) ONE (11:50)
[2023-05-26 12:11] VITALS: RESP 20; TEMP 98.1
[2023-05-26] MEDS ORDERED: ACETAMINOPHEN 1000 MG/100 ML BAG IVPB ONE (12:55)
[2023-05-26] MEDS ORDERED: SODIUM CHLORIDE 0.9% 500 ML INFUS.BAG IV ONE (12:55)
[2023-05-26 12:58] VITALS: BP 121/83
[2023-05-26] MEDS ORDERED: ACETAMINOPHEN INJECTION 100 ML IVPB ONE (13:10)
[2023-05-26] MEDS ORDERED: LIDOCAINE 4% PATCH TP ONE (13:12)
[2023-05-26 14:12] VITALS: PULSE 108
== END 2023-05-26 14:23 | disposition home or self-care (01) ==
LOC: JER 09:43 → JERFT 09:43
PROC: 3E033NZ Introduction of Analgesics, Hypnotics, Sedatives into Peripheral Vein, Percutaneous Approach (ICD-10-PCS; principal; 2023-05-26)
PROC: 3E0F7GC Introduction of Other Therapeutic Substance into Respiratory Tract, Via Natural or Artificial Opening (ICD-10-PCS; 2023-05-26)
DX: R05.9 Cough, unspecified (principal); H10.9 Unspecified conjunctivitis; U07.1 COVID-19; R09.81 Nasal congestion
CPT/HCPCS: 0241U-QW; 94640; 96374; 99284-25